=== PATIENT | male | born 1975 | race Caucasian/White ===

== ENCOUNTER 2017-09-14 13:09 | Inpatient (IN) | payer OTHER ==
[2017-09-14 13:43] LABS: #Basophils 0.1 thou/uL (0.0-0.2); #Eosinphils 0.1 thou/uL (0.0-0.7); #Lymphocytes 4.1 thou/uL (1.20-3.40); #Monocytes 0.6 thou/uL (0.11-0.59); #Neutrophils 7.3 thou/uL (1.40-6.50); %Basophils 0.7 % (0.0-1.0); %Eosinophils 0.9 % (0.0-10.0); %Lymphocytes 33.8 % (21.0-51.0); Hematocrit 50.9 % (42.0-52.0); Mean Platelet Volume 8.8 fL (7.4-10.4); Red Blood Cell (RBC) Count 5.47 mill/uL (4.70-6.10); White Blood Cell (WBC) Count 12.2 thou/uL (4.8-10.8)
[2017-09-14] MEDS ORDERED: Fentanyl 100 MCG/2 ML VIAL ONE ×3 (13:44→16:01)
[2017-09-14] MEDS ORDERED: Adacel (T-DAP) 0.5 ML VIAL ONE (13:44)
[2017-09-14 14:05] LABS: ALT (SGPT) 16 U/L (8-55); AST (SGOT) 23 U/L (5-34); Alkaline Phosphatase 84 U/L (40-150); Anion Gap 24 mmol/L (10-20); BUN (Urea Nitrogen) 15 mg/dL (8.9-20.6); Bilirubin, Total 0.3 mg/dL (0.2-1.2); Calc. Creatinine Clearance 0 mL/min (70-130); Calcium 9.3 mg/dL (7.8-10.44); Carbon Dioxide 12 mmol/L (22-29); Chloride 105 mmol/L (98-107); Estimated GFR-MDRD 56; Globulin 3.9 g/dL (2.4-3.5); Protein, Total 7.9 g/dL (6.0-8.3)
--- NOTE | 2017-09-14 14:12 | RAD ---
2 VIEWS LEFT FOREARM: Date: 09/14/17 HISTORY: Dog bits to bilateral arms. FINDINGS: There is subcutaneous emphysema and soft tissue irregularity involving the left forearm consistent w ith laceration. Subcutaneous edema is seen. No radiopaque foreign body is identified. There is no ev idence of a fracture or other osseous abnormality. Peripheral intravenous catheter overlies the rajiv on of the antecubital fossa. IMPRESSION: 1. Laceration and subcutaneous emphysema involving the left forearm. 2. No acute fracture visualized. POS: [facility]
--- NOTE | 2017-09-14 14:14 | RAD ---
TWO VIEWS RIGHT FOREARM: Date: 09-14-17 History: Dog bites to bilateral arms. Right forearm pain. FINDINGS: There is subcutaneous emphysema seen involving the distal arm and proximal left forearm with soft ti ssue irregularity most consistent with laceration. Subcutaneous edema is seen. There is no radiopaqu e foreign body identified. No fracture or dislocation is seen involving the right forearm. IMPRESSION: Findings consistent with laceration and subcutaneous edema involving the distal arm and proximal rig ht forearm without evidence of a radiopaque foreign body or fracture. POS: [facility]
[2017-09-14] MEDS ORDERED: Fentanyl 100 MCG/2 ML VIAL SLOW IVP SCH (14:45)
[2017-09-14] MEDS ORDERED: Ampicillin/Sulbactam 3 GM, Syringe 1.6 ML in Sterile Water 6.4 ML SLOW IVP SCH (14:45)
--- NOTE | 2017-09-14 14:51 | RAD ---
TWO VIEWS RIGHT HUMERUS: History: Dog bites, pain, trauma. FINDINGS: There is extensive subcutaneous emphysema due to soft tissue injury. Radiopaque foreign body is not appreciated. No fracture. IMPRESSION: 1. No radiopaque foreign body. No fracture. 2. Subcutaneous emphysema due to soft tissue injury. POS: [facility]
--- NOTE | 2017-09-14 14:54 | RAD ---
LEFT HAND THREE VIEWS: History: Trauma. Patient was bit by a dog. Comparison: None. FINDINGS: There is subcutaneous emphysema and soft tissue swelling involving the distal forearm. With regard t o the left hand there is a fracture involving the tuft of the fourth digit. Small amount of subcutan eous emphysema and soft tissue in the thenar eminence is noted. Joint spaces are preserved. No radio paque foreign body. IMPRESSION: 1. Soft tissue injury as above. 2. Fracture involving the tuft of the fourth digit. 3. No radiopaque foreign body. POS: [facility]
--- NOTE | 2017-09-14 14:55 | RAD ---
THREE VIEWS LEFT WRIST: Indication: Dog bite. Comparison: Prior exam dated 09-14-17, 1:55 p.m. FINDINGS: There is prominent soft tissue laceration involving the dorsal and ulnar aspect of the distal forear m with extensive subcutaneous gas. There is a small cortical fracture seen off the ulnar aspect of t he distal radial shaft. IMPRESSION: Extensive soft tissue laceration of the left forearm. Small cortical shaft avulsion injury, possibly from the dog bite penetrating the ulnar aspect of the shaft of the distal radius. POS: [facility]
--- NOTE | 2017-09-14 14:58 | RAD ---
RIGHT WRIST THREE VIEWS: History: Trauma, pain. Comparison: None. FINDINGS: Intracarpal and radiocarpal joint spaces preserved. No fracture. No cortical irregularity. No radiop aque foreign body. IMPRESSION: No fracture. POS: [facility]
[2017-09-14] MEDS ORDERED: Bupivacaine/Epinephrine 0.25% 30 ML VIAL ONE (15:35)
[2017-09-14] MEDS ORDERED: Neomycin-Polymyxin 1 ML AMP ONE (15:36)
[2017-09-14] MEDS ORDERED: MORPHINE 10 MG/ML SYRINGE ONE (15:48)
[2017-09-14] MEDS ORDERED: Succinylcholine Chloride 20 MG/ML 10 ml SYRINGE FS ONE (16:21)
[2017-09-14] MEDS ORDERED: Ketorolac Tromethamine 30 MG/ML VIAL ONE (16:21)
[2017-09-14] MEDS ORDERED: Propofol 200 MG/20 ML VIAL ONE (16:21)
[2017-09-14] MEDS ORDERED: Lidocaine 1% PF 5 ML VIAL ONE (16:21)
[2017-09-14] MEDS ORDERED: Ondansetron HCl/PF 4 MG/2 ML Vial ONE (16:21)
[2017-09-14] MEDS ORDERED: Dexamethasone 20 MG/5 ML VIAL ONE (16:21)
[2017-09-14] MEDS ORDERED: PHENYLEPHRINE-NS 100 MCG/ML 10 ML SYRINGE ONE (16:21)
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
[2017-09-14] MEDS ORDERED: Midazolam HCl 5 mg/5 ml Vial ONE (18:35)
[2017-09-14] MEDS ORDERED: Ondansetron ODT 4 MG TAB PO PRN (19:40)
[2017-09-14] MEDS ORDERED: Dextrose 50% Abboject 50 ML SYRINGE SLOW IVP PRN (19:40)
[2017-09-14] MEDS ORDERED: hydrALAZINE 20 MG/ML VIAL SLOW IVP PRN (19:40)
[2017-09-14] MEDS ORDERED: Dextrose 5% in Water 1,000 ML IV PRN (19:40)
[2017-09-14] MEDS ORDERED: Ondansetron HCl/PF 4 MG/2 ML Vial IVP PRN ×2 (19:40→19:55)
[2017-09-14] MEDS ORDERED: Promethazine HCl 25 MG/ML VIAL IM PRN (19:40)
--- NOTE | 2017-09-14 19:46 | OP ---
DATE OF PROCEDURE: 09/14/2017 PREOPERATIVE DIAGNOSIS: Multiple open wounds bilateral upper extremities secondary to dog bite. POSTOPERATIVE DIAGNOSIS: Multiple open wounds bilateral upper extremities secondary to dog bite. PROCEDURE: Washout of multiple wounds with partial closure (Dr. Rice came into the room to expl ore most of the wounds and managed them. TECHNIQUE: The patient was taken emergently from the ER to the operating room. His neuro exam was very limited preoperatively secondary to mental status and significant pain. Bilateral upper extrem ities were prepped and draped in a sterile fashion all the way to the axilla. Most of the hair on t he arms was shaved before the prep. Pulsavac was used to evacuate to irrigate out these upper and l ower wounds. There were three complex open wounds to the left forearm as well as three to the right upper arm above the elbow. The wounds were all irrigated, Dr. Rice came into the room to explo re the wounds. See his dictation for details of that. The small lacerations that were superficial were closed using zaheer. A few of the medium size lacerations were closed using Prolene suture. The rest were left open and the larger ones with a wound VAC. Dr. Rice plans stage 3 operation at a later date. Please see his dictation for details. The patient went to recovery in stable cond ition.
[2017-09-14] MEDS ORDERED: Promethazine HCl 25 MG/ML VIAL IM/IV PRN (19:55)
[2017-09-14] MEDS ORDERED: Meperidine HCl/PF 25 MG/ML VIAL SLOW IVP PRN (19:55)
[2017-09-14] MEDS ORDERED: Non-Formulary Medication 1 EACH PO PRN (19:55)
[2017-09-14] MEDS: Acetaminophen 500 MG TAB PO SCH (21:25)
[2017-09-14] MEDS: traMADol HCl 50 MG TAB PO SCH (21:26)
[2017-09-14] MEDS: Famotidine 20 MG TAB PO SCH (21:26)
[2017-09-14] MEDS: Oxazepam 10 MG CAP PO SCH (21:26)
[2017-09-14] MEDS: Sodium Chloride 0.9% 1,000 ML IV SCH (21:27)
[2017-09-14] MEDS: Ampicillin/Sulbactam 3 GM, Syringe 1.6 ML in Sterile Water 6.4 ML SLOW IVP SCH (22:24)
[2017-09-14 23:22] VITALS: BMI 32.8
[2017-09-14] MEDS ORDERED: Ampicillin/Sulbactam 3 GM in Sodium Chloride 0.9% 100 ML IVPB SCH (23:59)
[2017-09-15] MEDS: Oxazepam 10 MG CAP PO SCH ×4 (02:48→19:47)
[2017-09-15] MEDS: Acetaminophen 500 MG TAB PO SCH ×4 (02:48→19:47)
[2017-09-15] MEDS: traMADol HCl 50 MG TAB PO SCH ×4 (02:49→19:47)
[2017-09-15] MEDS: Ampicillin/Sulbactam 3 GM, Syringe 1.6 ML in Sterile Water 6.4 ML SLOW IVP SCH ×4 (04:30→21:14)
[2017-09-15] MEDS: Cyclobenzaprine 10 MG TAB PO PRN (04:30)
[2017-09-15 05:41] LABS: Prothrombin Time 15.3 SEC (12.0-14.7)
[2017-09-15 05:42] LABS: PTT 35.7 SEC (22.9-36.1)
[2017-09-15 05:44] LABS: #Lymphocytes 1.4 thou/uL (1.20-3.40); #Monocytes 0.5 thou/uL (0.11-0.59); #Neutrophils 9.2 thou/uL (1.40-6.50); %Basophils 0.1 % (0.0-1.0); %Eosinophils 0.1 % (0.0-10.0); %Lymphocytes 12.7 % (21.0-51.0); %Monocytes 4.2 % (0.0-10.0); Hematocrit 37.5 % (42.0-52.0); Mean Platelet Volume 8.8 fL (7.4-10.4); Red Blood Cell (RBC) Count 3.97 mill/uL (4.70-6.10); White Blood Cell (WBC) Count 11.1 thou/uL (4.8-10.8)
[2017-09-15 06:37] LABS: Anion Gap 13 mmol/L (10-20); BUN (Urea Nitrogen) 15 mg/dL (8.9-20.6); Calc. Creatinine Clearance 117 mL/min (70-130); Calcium 7.8 mg/dL (7.8-10.44); Carbon Dioxide 18 mmol/L (22-29); Chloride 109 mmol/L (98-107); Estimated GFR-MDRD 67
[2017-09-15] MEDS: Sodium Chloride 0.9% 1,000 ML IV SCH ×2 (07:37→13:23)
--- NOTE | 2017-09-15 08:30 | OP ---
DATE OF PROCEDURE: 09/14/2017 PREOPERATIVE DIAGNOSIS: Right and left multiple dog bite wounds, left and right long finger, left a nd right forearm, and left arm. POSTOPERATIVE DIAGNOSIS: Right and left multiple dog bite wounds, left and right long finger, left and right forearm, and left arm. SURGEON: Ranjit Rice MD. SOCIAL MEDIA MARKETING ANALYST: Jorje Reyes M.D. PROCEDURES PERFORMED: By Dr. Rice are as follows: On the right side, 1. Tenotomies of the flexor carpi radialis muscle belly. 2. Tenotomy of flexor carpi ulnaris muscle belly. 3. Flexor digitorum communis muscle belly tenotomy. 4. Tenotomy of the triceps tendon in the arm level. 5. Ulnar nerve neuroplasty/exploration of cubital tunnel and distal. 6. Fasciotomy, volar forearm superficial and deep on the right side. 7. Application of VAC dressing, approximately 10 x 5 cm right upper extremity. PROCEDURES ALL APPLIED TO THE LEFT LOWER EXTREMITY: 1. Debridement of long finger wound. 2. Debridement of left long finger grade 2 open distal phalanx fracture. 3. Debridement of nail bed laceration. 4. Debridement of dog bite wound, forearm, complex. 5. Deep debridement down to, but not including bone. 6. Tenotomy of extensor digitorum communis. 7. Tenotomy of extensor digitorum minimi. 8. Application of wound VAC dressing, 6 cm x 2.5 cm, all VAC dressing excellent suction. HISTORY: The patient involved in a dog bite wound reportedly by 2 pit bulls that he owns or either takes care. He was brought to the operating room and once the general surgeon tongue trimmer had begun an exploration, decided to consult intraoperatively for hand care. successful initiation of his procedure by Dr. Reyes, general surgeon, Dr. Rice arrived at the field. The left side and rig ht side were prepped and draped. No exam was done by Dr. Rice prior to initiation of surgery. Then, the patient already had the most superficial wounds already opened and debrided by Dr. Reyes that would easily visualize the large dorsal radial and dorsal ulnar dog bite wounds, extended them in a zigzag fashion to connect them, and using a wide field to evaluate the tendons. Here, we saw musculotendinous junction and muscle belly laceration that was deep. We saw no evidence in his fore arm of median nerve abnormality with the forearm wounds that were debrided volarly and we saw no beverly dence of superficial radial nerve abnormality. The extensor tenotomy tendons were debrided to form a tenotomy. They are back to viable tissue as described above and then the patient underwent debrid ement and removed all nonviable muscle from this area. Once this was done, the portion of the wound s that I extended were gently closed but left partially open, the large defect in the central dorsal region, proximal third dorsal region of the forearm underwent VAC dressing application and they had all been irrigated with a total of 5 liters normal saline with Pulsavac inside. The patient had no rmal capillary refill and indeed much tendon function had been restored. Once this was completely covered, the VAC dressings showed excellent suction of the machine with aurea y low liquid at the extensor digitorum communis, we returned attention to the right side by Dr. Jarrod hall and his team had already performed a debridement of the superficial wound, but there was a very deep wound to the proximal third forearm and to the arm. We first approached the arm wound by exten ding a 5 cm long oblique transverse incision proximally and distally giving us a total of about 10 c m working area to visualize a laceration in the partial aspect of the lateral triceps where tenotomy was performed with triceps to remove the nonviable portion of the tendon and we saw the direct ____ _ radial nerve and then we could, therefore, visualize the radial nerve from this juncture and there was no evidence of laceration or contusion. Then, we irrigated this with 1 liter normal saline and Pulsavac pressure with antibiotics inside. T hen, we also visualized the large gaping wound with muscle belly protruding through which was the la rgest of all the open wounds and dog bites, so we extended the laceration 7 cm proximal and 5 cm dis isha. At that point, we could see a flexor carpi radialis and flexor carpi ulnaris along with the pr onator head of all different damage levels, but all had musculotendinous nonviable muscle with hemat jenny within the muscles seen. All this was debrided. Debridement techniques here as well in the pro ximal portion, the distal portion was same to include the use of curet, [place] blade, 11 blade knife . Tenotomy scissors for instrumentation and then irrigation got to continue the debridement already initiated. At this point, we had now removed copious amounts of nonviable muscle, hematoma, releas e of fascia to perform fasciotomy to prevent fascial edema and could visualize the ulnar nerve total ly intact. The radial nerve is seen totally intact throughout the field and the arm as well. We th en irrigated this with 2500 mL normal saline, obtained hemostasis, cover all of the smaller wounds w ith Xeroform, 4 x 4s, and a Kerlix In the wound for the VAC dressing, which was applied over the pa lmar wound after partially closing the humerus wound. The patient left the operating room in a bulk y dressing and excellent VAC dressing on both sides. No evidence of anesthetic or operative complic ation. The left hand, there was a palmar 2 cm laceration over the thenar eminence extended 2 cm pro ximally along the edge of the hypothenar region and then distally in line with the third webspace an d through here we could see there was no evidence of nerve damage or gross contamination. Once we h ad done all debridement, then we irrigated this wound with 2 liters of normal saline and the patient was discharged. He had excellent VAC suction on both sides at the time of transfer.
[2017-09-15] MEDS ORDERED: FLU VACC QS2017-18 36 mo. & older 0.5 ML SYRINGE IM ONE (09:00)
[2017-09-15] MEDS: Famotidine 20 MG TAB PO SCH ×2 (09:37→21:15)
[2017-09-15] MEDS: Folic Acid 1 MG TAB PO SCH (09:37)
--- NOTE | 2017-09-15 15:09 | PRG ---
DATE OF SERVICE: 09/15/2017 ATTENDING PHYSICIAN: Jorje Reyes M.D. SUBJECTIVE: The patient is postoperative day #1 status post debridement and repair of bilateral upper extremity wounds due to multiple dog bites. He has remained stable on the floor postoperatively. He has had no postoperative complications thus far and pain has been well controlled. He is doing well on exam this morning. OBJECTIVE: VITAL SIGNS: Currently, temp 97.5, pulse 86, respirations 14, blood pressure at 122/86. GENERAL: No acute distress, resting comfortably. LUNGS: Bilateral to auscultation. CARDIOVASCULAR: Regular rate and rhythm. EXTREMITIES: Bilateral upper extremities with negative pressure wound, VAC therapy in place. NEUROLOGIC: The patient is neurologically intact. No deficits. ASSESSMENT AND PLAN: This is a 42-year-old male status post multiple dog bite wounds to the upper extremities which have been debrided. He has wound VAC therapy in place to both extremities. We will plan on taking him back to the operating room in the next few days for continued washout and repair. Pain is well managed at this time. We [facility] DC Brewer catheter. Continue IV antibiotics as ordered. Monitor serial labs. The patient has been seen and examined by Dr. Reyes and he agrees with the above plan. [facility]
[2017-09-15] MEDS: Gabapentin 300 MG CAP PO SCH ×2 (15:54→21:15)
[2017-09-15] MEDS ORDERED: Lurasidone HCl 40 MG TABLET PO SCH (21:00)
[2017-09-15] MEDS ORDERED: Non-Formulary Item 1 EACH (Lurasidone Hcl [Latuda] 60 MG) PO SCH (21:00)
[2017-09-15] MEDS: Mirtazapine 15 MG TAB PO SCH (21:15)
[2017-09-15] MEDS: Lurasidone HCl 40 MG TABLET PO SCH (21:15)
[2017-09-15] MEDS: Enoxaparin Sodium 40 MG/0.4 ML SYRINGE SC SCH (21:16)
[2017-09-15] MEDS ORDERED: Promethazine HCl 25 MG/ML VIAL IM PRN (21:26)
[2017-09-16] MEDS: Acetaminophen 500 MG TAB PO SCH ×4 (02:01→19:57)
[2017-09-16] MEDS: Oxazepam 10 MG CAP PO SCH ×4 (02:01→19:56)
[2017-09-16] MEDS: traMADol HCl 50 MG TAB PO SCH ×4 (02:01→19:56)
[2017-09-16] MEDS: Sodium Chloride 0.9% 1,000 ML IV SCH ×4 (02:02→22:39)
[2017-09-16] MEDS: Ampicillin/Sulbactam 3 GM, Syringe 1.6 ML in Sterile Water 6.4 ML SLOW IVP SCH ×4 (02:47→21:29)
[2017-09-16 06:03] LABS: #Lymphocytes 2.1 thou/uL (1.20-3.40); #Monocytes 0.7 thou/uL (0.11-0.59); #Neutrophils 5.1 thou/uL (1.40-6.50); %Basophils 0.1 % (0.0-1.0); %Eosinophils 0.2 % (0.0-10.0); %Lymphocytes 26.5 % (21.0-51.0); %Monocytes 8.7 % (0.0-10.0); Hematocrit 32.3 % (42.0-52.0); Mean Platelet Volume 8.4 fL (7.4-10.4); Red Blood Cell (RBC) Count 3.37 mill/uL (4.70-6.10); White Blood Cell (WBC) Count 7.9 thou/uL (4.8-10.8)
[2017-09-16] MEDS: Gabapentin 300 MG CAP PO SCH ×4 (08:59→20:28)
[2017-09-16] MEDS: Folic Acid 1 MG TAB PO SCH (08:59)
[2017-09-16] MEDS: Famotidine 20 MG TAB PO SCH ×2 (09:00→20:28)
[2017-09-16] MEDS: Losartan Potassium 25 MG TAB PO SCH (09:00)
[2017-09-16] MEDS: Cyclobenzaprine 10 MG TAB PO PRN (18:19)
--- NOTE | 2017-09-16 18:42 | PRG ---
DATE OF SERVICE: 09/16/2017 ATTENDING PHYSICIAN: Dr. Gerson Hair. SUBJECTIVE: The patient is postoperative day #2 status post debridement and repair of bilateral upper extremity wounds due to multiple dog bites. He is stable on the floor postoperatively. He has had no complications. [facility] and restarted one day ago. OBJECTIVE: GENERAL: No acute distress, resting comfortably. VITAL SIGNS: Temperature 97.7, pulse 76, respirations 10, O2 sat 93% and blood pressure 127/80. LUNGS: Respirations even and unlabored. No respiratory distress. CARDIOVASCULAR: Regular rate and rhythm. ABDOMEN: Soft and nontender. NEUROLOGIC: The patient is neurologically intact. No deficits. EXTREMITIES: Bilateral upper extremities with negative pressure wound VAC therapy in place on both extremities functioning appropriately. Moves all digits. Complains of numbness to the left hand fourth and fifth digits, which he reports as being chronic due to carpal tunnel syndrome. ASSESSMENT AND PLAN: This is a 42-year-old male, status post multiple dog bite wounds to the upper extremities, which are status post debridement. Wound VAC in place and functioning normally. We will plan on taking him back to the operating room in the next 1-2 days for a repeat washout and repair. Pain is well controlled. Home medicines have been restarted. Discontinue IV fluids. Continue regular diet. Monitor serial labs. Assessment and plan of care have been reviewed and discussed with trauma attending. [facility]
[2017-09-16] MEDS ORDERED: Ketorolac Tromethamine 30 MG/ML VIAL IVP PRN (20:02)
[2017-09-16] MEDS: Mirtazapine 15 MG TAB PO SCH (20:28)
[2017-09-16] MEDS: Lurasidone HCl 40 MG TABLET PO SCH (20:29)
[2017-09-16] MEDS: Enoxaparin Sodium 40 MG/0.4 ML SYRINGE SC SCH (20:29)
[2017-09-17] MEDS: Sodium Chloride 0.9% 1,000 ML IV SCH ×2 (01:16→09:26)
[2017-09-17] MEDS: traMADol HCl 50 MG TAB PO SCH ×4 (01:19→20:05)
[2017-09-17] MEDS: Oxazepam 10 MG CAP PO SCH ×3 (01:19→21:50)
[2017-09-17] MEDS: Acetaminophen 500 MG TAB PO SCH ×4 (01:19→20:05)
[2017-09-17] MEDS: Ampicillin/Sulbactam 3 GM, Syringe 1.6 ML in Sterile Water 6.4 ML SLOW IVP SCH ×4 (03:45→21:49)
[2017-09-17] MEDS: Losartan Potassium 25 MG TAB PO SCH (07:57)
[2017-09-17] MEDS: Folic Acid 1 MG TAB PO SCH (07:57)
[2017-09-17] MEDS: Famotidine 20 MG TAB PO SCH ×2 (07:58→20:05)
[2017-09-17] MEDS: Gabapentin 300 MG CAP PO SCH ×3 (07:58→20:09)
--- NOTE | 2017-09-17 13:49 | PRG ---
DATE OF SERVICE: 09/17/2017 SUBJECTIVE: Mr. Neisha Castrejon is a 42-year-old male who is postop day #3 status post debridement and repair, bilateral upper extremity wounds secondary to multiple dog bites. He localizes no complain ts this a.m. He did have increasing pain overnight for which Toradol was added to his pain regimen. He is more drowsy today than yesterday. OBJECTIVE: VITAL SIGNS: Temperature 97.7, pulse 70, respiration 14, O2 sat 99% on room air, blood pressure 126 /78. GENERAL: Well-developed, well-nourished male in no acute distress, resting in bed. PULMONARY: Normal work of breathing. Symmetric rise. CARDIOVASCULAR: Regular rate and rhythm. GASTROINTESTINAL: Abdomen is soft, nontender, nondistended. MUSCULOSKELETAL: Bilateral upper extremity dressing is clean, dry, and intact. Wound VAC is in bridgette ce. There is some serosanguineous drainage within the wound VAC canisters. NEUROLOGIC: No focal deficit noted. LABORATORY FINDINGS: No new laboratory findings this a.m. RADIOGRAPHIC FINDINGS: No new radiographic findings this a.m. ASSESSMENT: 1. Status post multiple dog bites to bilateral upper extremities. 2. Postop day #3 status post debridement and repair as above. 3. Acute traumatic pain. 4. History of post-traumatic stress disorder and anxiety. 5. Polysubstance use, marijuana and ecstasy. 6. Alcohol and tobacco use. PLAN: Continue pain management as ordered. Reduce Serax to b.i.d. Discussed with Orthopedic Surge ry or the patient returned to the operating room. Continue to encourage mobility and pulmonary toil et. Continue home psychiatric medications as ordered. Continue supportive care. A.m. labs. The p atient has been discussed with trauma attending. All questions answered at the time of this dictati on.
[2017-09-17] MEDS: Mirtazapine 15 MG TAB PO SCH (20:05)
[2017-09-17] MEDS: Enoxaparin Sodium 40 MG/0.4 ML SYRINGE SC SCH (20:09)
[2017-09-17] MEDS: Lurasidone HCl 40 MG TABLET PO SCH (20:09)
[2017-09-18] MEDS: traMADol HCl 50 MG TAB PO SCH ×4 (03:13→19:10)
[2017-09-18] MEDS: Acetaminophen 500 MG TAB PO SCH ×4 (03:13→19:10)
[2017-09-18] MEDS: Ampicillin/Sulbactam 3 GM, Syringe 1.6 ML in Sterile Water 6.4 ML SLOW IVP SCH ×4 (03:14→20:25)
[2017-09-18 05:39] LABS: #Eosinphils 0.1 thou/uL (0.0-0.7); #Lymphocytes 1.8 thou/uL (1.20-3.40); #Monocytes 0.5 thou/uL (0.11-0.59); #Neutrophils 1.7 thou/uL (1.40-6.50); %Basophils 0.6 % (0.0-1.0); %Eosinophils 1.4 % (0.0-10.0); %Lymphocytes 43.5 % (21.0-51.0); %Monocytes 11.7 % (0.0-10.0); Hematocrit 32.7 % (42.0-52.0); Mean Platelet Volume 8.4 fL (7.4-10.4); Red Blood Cell (RBC) Count 3.39 mill/uL (4.70-6.10); White Blood Cell (WBC) Count 4.1 thou/uL (4.8-10.8)
[2017-09-18 05:58] LABS: Anion Gap 10 mmol/L (10-20); BUN (Urea Nitrogen) 10 mg/dL (8.9-20.6); Calc. Creatinine Clearance 173 mL/min (70-130); Calcium 8.6 mg/dL (7.8-10.44); Carbon Dioxide 27 mmol/L (22-29); Chloride 107 mmol/L (98-107); Estimated GFR-MDRD Greater than 90; Magnesium 1.5 mg/dL (1.6-2.6); Phosphorus 4.4 mg/dL (2.3-4.7)
[2017-09-18] MEDS: Sodium Chloride 0.9% 1,000 ML IV SCH ×3 (07:32→23:04)
[2017-09-18] MEDS ORDERED: Sodium Chloride 0.9% 30 ML ONE (07:35)
[2017-09-18] MEDS ORDERED: Bupivacaine PF 0.5% 30 ML VIAL ONE (07:35)
[2017-09-18] MEDS ORDERED: Thrombin 5000 UNITS/5 ML VIAL ONE (07:35)
[2017-09-18] MEDS ORDERED: Lidocaine 1% (PF) 30 ML VIAL ONE (07:35)
[2017-09-18] MEDS ORDERED: Bacitracin Zinc Ointment 30 gm TUBE ONE ×2 (07:35→10:29)
[2017-09-18] MEDS ORDERED: Midazolam HCl 2 mg/2 ml Vial ONE ×2 (07:59→08:23)
[2017-09-18] MEDS ORDERED: Fentanyl 100 MCG/2 ML VIAL ONE ×2 (08:08→12:50)
[2017-09-18] MEDS ORDERED: Dexamethasone 20 MG/5 ML VIAL ONE (08:32)
[2017-09-18] MEDS ORDERED: Ketorolac Tromethamine 30 MG/ML VIAL ONE (08:32)
[2017-09-18] MEDS ORDERED: Ondansetron HCl/PF 4 MG/2 ML Vial ONE (08:32)
[2017-09-18] MEDS ORDERED: Propofol 200 MG/20 ML VIAL ONE (08:32)
[2017-09-18] MEDS: cloNIDine 0.1 MG TAB PO SCH ×3 (12:10→20:04)
[2017-09-18] MEDS: Gabapentin 300 MG CAP PO SCH ×3 (12:10→20:04)
[2017-09-18] MEDS ORDERED: Ondansetron HCl/PF 4 MG/2 ML Vial IVP PRN (12:47)
[2017-09-18] MEDS ORDERED: Promethazine HCl 25 MG/ML VIAL SLOW IVP PRN (12:47)
[2017-09-18] MEDS ORDERED: Promethazine HCl 25 MG/ML VIAL IM PRN (12:47)
[2017-09-18] MEDS ORDERED: Promethazine HCl 25 MG/ML VIAL ONE (12:52)
[2017-09-18] MEDS: Oxazepam 10 MG CAP PO SCH ×2 (13:25→20:04)
[2017-09-18] MEDS: Famotidine 20 MG TAB PO SCH ×2 (13:25→20:04)
[2017-09-18] MEDS ORDERED: Morphine PF 1 MG/ML SYR IVP PRN (14:04)
[2017-09-18] MEDS: Losartan Potassium 25 MG TAB PO SCH (14:59)
[2017-09-18] MEDS: Folic Acid 1 MG TAB PO SCH (14:59)
[2017-09-18] MEDS: Docusate 100 MG CAP PO SCH (15:00)
[2017-09-18] MEDS: Senokot 8.6 MG TAB PO SCH (15:05)
[2017-09-18] MEDS: Morphine 4 MG/ML VIAL SLOW IVP PRN ×3 (15:54→23:11)
--- NOTE | 2017-09-18 16:46 | PRG ---
DATE OF SERVICE: 09/18/2017 SUBJECTIVE: Mr. Neisha Castrejon is a 42-year-old male who presented to the [facility] ER status post b ilateral upper extremity wounds secondary to multiple dog bites. He was taken to the operating room earlier today with hand surgery. He is drowsy postoperative. He localizes no complaint. OBJECTIVE: VITAL SIGNS: Reviewed. GENERAL: Well-developed, well-nourished male in no acute distress, resting in bed. PULMONARY: Normal work of breathing. LUNGS: Symmetric rise. CARDIOVASCULAR: Regular rate and rhythm. GASTROINTESTINAL: Abdomen is soft, nontender, nondistended. MUSCULOSKELETAL: Bilateral upper extremity dressing clean, dry, and intact. NEUROLOGIC: No focal deficits noted. LABORATORY FINDINGS: Sodium 140, potassium 4.2, chloride 107, carbon dioxide 27, BUN 10, creatinine 0.80. WBC 4.1, hemoglobin 10.7, hematocrit 32.7, platelet count 133. RADIOGRAPHIC FINDINGS: No new radiographic findings. ASSESSMENT: 1. Status post multiple dog bites bilateral upper extremities. 2. Postoperative day #0 and postoperative day #3 status post debridement and repair of above injuri es. 3. Acute traumatic pain. 4. History of post-traumatic stress disorder and anxiety. 5. Polysubstance use, marijuana, and ecstasy. 6. Alcohol and tobacco use. PLAN: Continue pain management as ordered. Continue Serax taper. Discussed with Orthopedic Surger y. Continue to encourage mobility and pulmonary toilet. Continue home psychiatric medications as o rdered. Patient has been discussed with trauma attending. All questions were answered at the time of this dictation.
[2017-09-18] MEDS: Mirtazapine 15 MG TAB PO SCH (20:04)
[2017-09-18] MEDS: Lurasidone HCl 40 MG TABLET PO SCH (20:05)
[2017-09-18] MEDS: Enoxaparin Sodium 40 MG/0.4 ML SYRINGE SC SCH (20:06)
[2017-09-19] MEDS: traMADol HCl 50 MG TAB PO SCH ×3 (01:59→14:00)
[2017-09-19] MEDS: cloNIDine 0.1 MG TAB PO SCH ×2 (02:00→08:17)
[2017-09-19] MEDS: Acetaminophen 500 MG TAB PO SCH ×2 (02:00→08:15)
[2017-09-19] MEDS: Ampicillin/Sulbactam 3 GM, Syringe 1.6 ML in Sterile Water 6.4 ML SLOW IVP SCH ×2 (03:04→09:05)
[2017-09-19 05:39] LABS: #Lymphocytes 1.6 thou/uL (1.20-3.40); #Monocytes 0.5 thou/uL (0.11-0.59); #Neutrophils 6.7 thou/uL (1.40-6.50); %Eosinophils 0.1 % (0.0-10.0); %Monocytes 5.6 % (0.0-10.0); Hematocrit 32.1 % (42.0-52.0); Mean Platelet Volume 8.3 fL (7.4-10.4); Red Blood Cell (RBC) Count 3.35 mill/uL (4.70-6.10); White Blood Cell (WBC) Count 8.8 thou/uL (4.8-10.8)
--- NOTE | 2017-09-19 08:05 | OP ---
DATE OF SURGERY: 09/18/2017 PREOPERATIVE DIAGNOSES: 1. Right upper extremity multiple dog bite wounds with triceps tendon plus carpi radialis tendon pl us carpi ulnaris musculotendinous junction lacerations and possibly contaminated wounds. 2. Left upper extremity open distal phalanx fracture, nail bed laceration complete and complex, the ring finger nail extensor digiti minimi laceration. POSTOPERATIVE DIAGNOSES AND FINDINGS: No gross infection, only minimal of wound edge necrosis, smal l amount of muscle necrosis less to the palmar, mid, and ulnar proximal aspect of the right forearm and no gross hematoma or infection seen. The patient had a white blood cell count of 4.1, no fevers assessed, first procedure 2-1/2 days ago. PROCEDURE PERFORMED: At the right upper extremity: 1. Debridement and irrigation of right arm wound. 2. Debridement and irrigation of right elbow wound. 3. Debridement and irrigation of right forearm wounds. 4. Triceps tendon repair. 5. Flexor carpi radialis repair, right. 6. Flexor carpi ulnaris musculotendinous junction repair. 7. Wound closures to include rotation of flap covered at the elbow medial aspect and total of 63 cm wound debridement and closure. 8. Application of short-arm splint. At the left upper extremity: 1. Debridement of open fracture, left ring finger distal phalanx. 2. Open treatment without fixation of left ring finger distal phalanx fracture. 3. Nail bed repair, complex on the magnification. 4. Debridement and irrigation of the left arm wounds. 5. Extensor digiti minimi repair. 6. Wound closure of the left arm, elbow, and forearm total of 55 cm. 7. Application of short-arm splint. 8. Use of C-arm. C-arm supervision 1 hour. INDICATIONS: The patient is undergoing staged wound management after tremendously large dog bite wo unds which were totalling over almost 120 cm. He returns today for wound management. ANESTHESIA: General LMA technique. DESCRIPTION OF PROCEDURE: After successful general LMA technique, the patient had a timeout done ap propriately and the surgeon along with the OR nurse each prepped and helped drape separate limbs, no tourniquet was applied. We initially forced the right side because of a large amount of musculoten dinous exposure. For this reason, the patient underwent a wide debridement of all wound edges circu mferentially 1 to 1.5 mm. Then, we debrided a small amount of necrosis of one of the skin wound edg es, which is almost 2 cm long and 3 mm wide. Once this was done, we could visualize all the wounds to include a large amount of flexor pronator origin wound involving the flexor carpi radialis and ul naris tendon muscular junction. The triceps on the medial side wound lateral side laceration, and we debrided all this area to include any denuded fat was all removed. It was then irrigated wi th 7 liters of normal saline and Pulsavac pressure with antibiotics inside. We obtained hemostasis in all sites. First repaired the triceps tendon interrupted 3-0 Prolene figu re-of-eight, this was a partial laceration. Next, we have repaired the flexor carpi radialis and fl exor carpi ulnaris right side back to the muscle to muscle near the musculotendinous junction using a #1 Ethibond in a [id number] pattern. It was excellent, but no undue tension here. The patie nt had the irrigation described above with 7 liters of normal saline completed, and then, we found t hat and debrided a small portion of a flap that was created for the VAC dressing on this side, which covered the muscle belly loss and repair at the flexor pronator group origin. We then extended the incision, rotated a flap of skin into the defect, was able to close it primarily without skin graft used in a deep Monocryl 4-0 and a 3-0 nylon for the epidermal repairs, the simple stitch. We then did the same debridement of the wound edges circumferentially at all the other incisions including t riceps repair site, we were able to close them primarily with just a 3-0 nylon interrupted simple pa ttern. The same was done with the lacerations on the forearm. We then were able to place a bacitracin, Adaptic on each of the wounds covered with 4 x 4s, ABD, and a Kerlix, then covered it with a plastic impervious stockinette, so that spray from the irrigation and debridement on the contralateral left side would not occur. Again, we have removed all sutures and zaheer. We debrided all wounds using a combination of same technique we did on the right side, which is as follows: A. Use of curette, tenotomy scissors, [place] blade, 11 blade knife. B. Dissected down all layers with excisional technique. C. We were able to in some place go all the way down to the bone but did not include the bone and i ndeed, there was no infection, only minimal wound edge necrosis. We then were able to visualize the patient's wounds were now clean. Repaired the extensor digit min imi which had approximately 20% with a loss in the dog bite wound back to itself using a figure-of-e ight interrupted suture x2. Then, we began the closure using a 2-layer closure with a deep interrup haven 4-0 Monocryl and then the epidermal closure with a 4-0 or 3-0 nylon depending on the size of the wound. This included the elbow, forearm, and distal forearm lacerations. Now, we turned our attention to the ring finger nail bed. Through the nail bed, we debrided the fra cture sites all were small, therefore, did not to attempt to capture with a K-wire today, so he unde rwent open treatment without internal fixation. Then, we were able to extend the incision using a f jeffery cot tourniquet which lasted only 8 minutes and making an oblique incision over the proximal an d medial nail was able to lift up the nail eponychial fold and visualize the nail bed aspect which w as good because it was displaced and involved germinal matrix mostly. We finished debriding this wi th a combination of curette and tenotomy scissors and then closed this defect back to its base and i nto the distal portion of the laceration using a 4-0 chromic in simple pattern. Once this repair wa s done, we then ensured we had finished all the skin repair and they were done, C-arm showed excelle nt position of the fracture fragment, and we then released the finger cot tourniquet and began repai r. We repaired the incision we made in the nail bed, we cut all the sutures to appropriate length. We then had finished the wound closure on the left arm in multiple layers described above after the debridements, and this was approximately 55 cm total wound surface area repair. We then placed a b ulky dressing over all the wounds to include a separate finger tube gauze over the left ring finger open injury that has not been repaired, also bacitracin, Adaptic under this. The patient then had a short-arm splint applied to both sides and left the operating room without evidence of anesthetic o r operative complication.
[2017-09-19] MEDS: Gabapentin 300 MG CAP PO SCH (08:15)
[2017-09-19] MEDS: Senokot 8.6 MG TAB PO SCH (08:17)
[2017-09-19] MEDS: Folic Acid 1 MG TAB PO SCH (08:17)
[2017-09-19] MEDS: Losartan Potassium 25 MG TAB PO SCH (08:17)
[2017-09-19] MEDS: Docusate 100 MG CAP PO SCH (08:17)
[2017-09-19] MEDS: Famotidine 20 MG TAB PO SCH (08:18)
[2017-09-19] MEDS: Oxazepam 10 MG CAP PO SCH (08:25)
[2017-09-19] MEDS: Morphine 4 MG/ML VIAL SLOW IVP PRN (08:25)
[2017-09-19] MEDS ORDERED: Clindamycin 150 MG CAP PO SCH ×2 (10:11→14:00)
[2017-09-19] MEDS ORDERED: Ketorolac Tromethamine 10 MG TAB PO SCH (12:00)
[2017-09-19 13:35] VITALS: BP 142/84; TEMP 97.6
--- NOTE | 2017-09-19 13:40 | PRG ---
DATE OF SERVICE: 09/19/2017 SUBJECTIVE: Mr. Castrejon has no complaints. He is ready for discharge. The wound has been closed by Dr. Rice. ASSESSMENT: Multiple dog bites with tendon injury, complex wounds status post debridement and closu re repair by Dr. Rice. PLAN: Home today. Follow up with Dr. Avila or in the Trauma office for suture staple removal.
--- NOTE | 2017-09-20 03:15 | DIS ---
DATE OF ADMISSION: 09/14/2017 DATE OF DISCHARGE: 09/19/2017 ADMISSION DIAGNOSES: 1. Status post multiple dog bites to bilateral upper extremities. 2. Acute traumatic pain. 3. History of post-traumatic stress disorder and anxiety. 4. Polysubstance use. 5. History of alcohol abuse. DISCHARGE DIAGNOSES: 1. Status post multiple dog bites to bilateral upper extremities. 2. Acute traumatic pain. 3. History of post-traumatic stress disorder and anxiety. 4. Polysubstance use. 5. History of alcohol abuse. CONSULTANTS: Dr. Rice, Orthopedic/Hand Surgery. PROCEDURES: On 09/14/2017, incision and debridement of bilateral upper extremities and wound VAC pl acement with Dr. Rice and Dr. Reyes. On 09/18/2017, debridement of bilateral upper extremity wounds and fractures with wound closure, bilateral open wounds with Dr. Rice. HOSPITAL COURSE: Neisha Castrejon is a 42-year-old gentleman who presented to [facility] after susta ining multiple dog bites. The patient was taken urgently to the operating room for washout and repa ir of his injuries. Wound VACs were placed. The patient was returned to the operating room on 09/07 for a second washout and the wounds were closed at that time. The patient remained afebrile. White count was within normal limits. The patient was medically stable for discharge on 7 after discussion with the appropriate consultants. Of note, the patient does have a psychiatric h istory for which he was restarted on his home medications during his hospitalization. DISCHARGE DISPOSITION: Home. DISCHARGE CONDITION: Good. PHYSICAL EXAMINATION: VITAL SIGNS: Temperature 97.7, pulse 64, respirations 14, O2 sat 100% on room air, blood pressure 1 26/85. GENERAL: Well-developed, well-nourished male, in no acute distress, sitting in a chair, out of bed. PULMONARY: Normal work of breathing, symmetric rise. CARDIOVASCULAR: Regular rate and rhythm. GASTROINTESTINAL: Abdomen is soft, nontender, nondistended. MUSCULOSKELETAL: Bilateral upper extremity dressing is clean, dry, and intact. Bilateral lower ext remities within normal limits. NEURO: No focal deficit noted. DISCHARGE MEDICATIONS: The patient was discharged home on a 5-day course of clindamycin 500 mg p.o. t.i.d., Ultram 50 mg 1 to 2 tablets q.6 hours p.r.n. for severe pain, #30, Toradol 10 mg 1 tab p.o. t.i.d. p.r.n. for pain as well as his home medications. FOLLOWUP APPOINTMENTS: The patient was given a followup appointment with Dr. Rice on 09/22/2017 at 12:00. He does not need to follow up formally with trauma services and may call our office with any questions. This is merely a summary of the patient's hospitalization. For more in depth information, please se e his medical record in its entirety.
== END 2017-09-19 13:55 | disposition home or self-care (01) | DRG 571 ==
LOC: ERS 13:09 → SDC/OP 15:36 → SURG A 20:22 → OBSVTOIN 20:22
PROVIDERS: ADMIT Surgery; ATTEND Surgery
PROC: 0JDG0ZZ Extraction of Right Lower Arm Subcutaneous Tissue and Fascia, Open Approach (ICD-10-PCS; 2017-09-14)
PROC: 0JDH0ZZ Extraction of Left Lower Arm Subcutaneous Tissue and Fascia, Open Approach (ICD-10-PCS; 2017-09-14)
PROC: 0JDK0ZZ Extraction of Left Hand Subcutaneous Tissue and Fascia, Open Approach (ICD-10-PCS; 2017-09-14)
PROC: 0KD90ZZ Extraction of Right Lower Arm and Wrist Muscle, Open Approach (ICD-10-PCS; 2017-09-14)
PROC: 0KDB0ZZ Extraction of Left Lower Arm and Wrist Muscle, Open Approach (ICD-10-PCS; 2017-09-14)
PROC: 0JDH0ZZ Extraction of Left Lower Arm Subcutaneous Tissue and Fascia, Open Approach (ICD-10-PCS; 2017-09-14)
PROC: 0JBG0ZZ Excision of Right Lower Arm Subcutaneous Tissue and Fascia, Open Approach (ICD-10-PCS; principal; 2017-09-18)
PROC: 0JQG0ZZ Repair Right Lower Arm Subcutaneous Tissue and Fascia, Open Approach (ICD-10-PCS; 2017-09-18)
PROC: 0JBH0ZZ Excision of Left Lower Arm Subcutaneous Tissue and Fascia, Open Approach (ICD-10-PCS; 2017-09-18)
PROC: 0LQ30ZZ Repair Right Upper Arm Tendon, Open Approach (ICD-10-PCS; 2017-09-18)
PROC: 0KQ90ZZ Repair Right Lower Arm and Wrist Muscle, Open Approach (ICD-10-PCS; 2017-09-18)
PROC: 0PBT0ZZ Excision of Right Finger Phalanx, Open Approach (ICD-10-PCS; 2017-09-18)
PROC: 0KQB0ZZ Repair Left Lower Arm and Wrist Muscle, Open Approach (ICD-10-PCS; 2017-09-18)
PROC: 0JQH0ZZ Repair Left Lower Arm Subcutaneous Tissue and Fascia, Open Approach (ICD-10-PCS; 2017-09-18)
DX: S51.852A Open bite of left forearm, initial encounter (principal); I96 Gangrene, not elsewhere classified; S46.321A Laceration of muscle, fascia and tendon of triceps, right arm, initial encounter; S66.821A Laceration of other specified muscles, fascia and tendons at wrist and hand level, right hand, initial encounter; S66.325A Laceration of extensor muscle, fascia and tendon of left ring finger at wrist and hand level, initial encounter; S62.638B Displaced fracture of distal phalanx of other finger, initial encounter for open fracture; F10.10 Alcohol abuse, uncomplicated; S41.152A Open bite of left upper arm, initial encounter; S51.851A Open bite of right forearm, initial encounter; F15.90 Other stimulant use, unspecified, uncomplicated; F19.90 Other psychoactive substance use, unspecified, uncomplicated; F12.90 Cannabis use, unspecified, uncomplicated; Z72.0 Tobacco use; F43.10 Post-traumatic stress disorder, unspecified; F41.9 Anxiety disorder, unspecified
CPT/HCPCS: 36415; 76001; 80048; 80053; 83735; 84100; 85025; 85610; 85730; 90471; 90715; 96374; 96376; 99292; A4216; G0390; G8987-GO-CK; G8988-GO-CI; J0295; J1100; J1650; J1885; J2001; J2175; J2250; J2270; J2405; J2550; J2704; J3010; J3490; S0020

== ENCOUNTER → 2018-06-22 | Emergency (ER) | payer OTHER ==
[~2018-06-22] MED LIST: Haloperidol Lactate 5 MG/ML VIAL ONE; Lidocaine 1% (PF) 30 ML VIAL ONE; Lorazepam 2 MG/ML VIAL ONE; OLANZapine 5 MG TAB ONE; diphenhydrAMINE 50 MG/ML VIAL ONE; hydrOXYzine Pamoate 25 mg Capsule ONE
[2018-06-22 20:43] LABS: Bilirubin Small (Negative); Blood, Urine Negative (Negative); Clarity CLEAR (Clear); Glucose, Urine (Dipstick) Negative (Negative); Leukocyte Negative (Negative); Nitrite Negative (Negative); Protein, Urine (Dipstick) Negative (Neg-Trace); Specific Gravity, Urine 1.035 (1.002-1.036); pH, Urine 5.5 (5.0-9.0)
[2018-06-22 20:56] LABS: Amphetamine Not Detected (NotDetected); Barbiturates Screen Not Detected (NotDetected); Benzodiazepine Screen Not Detected (NotDetected); Cocaine Metabolite Screen Not Detected (NotDetected); Medtox Control Line Valid? VALID (VALID); Medtox Reader # READER 4; Methadone Not Detected (NotDetected); Methamphetamine Not Detected (NotDetected); Opiate Screen Not Detected (NotDetected); Oxycodone Screen Not Detected (NotDetected); Phencyclidine (PCP) Not Detected (NotDetected); THC/Cannabinoid Screen Detected (NotDetected); Tricyclic Screen Not Detected (NotDetected)
[2018-06-22 22:26] LABS: Band 7 % (5-11); Hemoglobin 15.8 g/dL (14.0-18.0); Lymphocytes 46 % (21-51); MDiff Complete? YES; Mean Corpuscular HGB CONC 34.7 g/dL (32.0-36.0); Mean Corpuscular Volume 92.2 fL (78.0-98.0); Monocytes 12 % (0-10); Neutrophil 34 % (42-75); PLT Morphology Comment Appears Decreased; Platelet Count 119 thou/uL (130-400); RBC Distribution Width 12.6 % (11.5-14.5); Red Blood Cell (RBC) Count 4.95 mill/uL (4.70-6.10); White Blood Cell (WBC) Count 8.8 thou/uL (4.8-10.8)
[2018-06-22 22:27] LABS: ALT (SGPT) 28 U/L (8-55); AST (SGOT) 25 U/L (5-34); Acetaminophen Less than 6.0 mcg/mL (10.0-30.0); Alcohol Less than 10 mg/dL (Less than 10); Alkaline Phosphatase 85 U/L (40-150); Anion Gap 19 mmol/L (10-20); BUN (Urea Nitrogen) 18 mg/dL (8.9-20.6); Bilirubin, Total 0.4 mg/dL (0.2-1.2); CK (CPK) 218 U/L (30-200); Calc. Creatinine Clearance 0 mL/min (70-130); Calcium 8.9 mg/dL (7.8-10.44); Carbon Dioxide 17 mmol/L (22-29); Chloride 109 mmol/L (98-107); Estimated GFR-MDRD 79; Globulin 3.5 g/dL (2.4-3.5); Glucose 122 mg/dL (70-105); Potassium 3.5 mmol/L (3.5-5.1); Protein, Total 7.5 g/dL (6.0-8.3); Salicylate Less than 8.0 mg/dL (15.0-30.0); Sodium 141 mmol/L (136-145)
== END ==
LOC: ERS 20:09
DX: R45.851 Suicidal ideations (principal); I10 Essential (primary) hypertension; G43.909 Migraine, unspecified, not intractable, without status migrainosus; F17.210 Nicotine dependence, cigarettes, uncomplicated
CPT/HCPCS: 36415; 80053; 80306; 80307; 81003; 82550; 84443; 85025; 93005; 96372; J1200; J1630; J2001; J2060; Q0177

== ENCOUNTER 2022-11-16 00:04 | Observation (INO) | payer OTHER ==
[2022-11-16] MEDS ORDERED: Ketorolac Tromethamine 30 MG/ML VIAL ONE (00:52)
[2022-11-16] MEDS ORDERED: Acetaminophen 500 MG TAB ONE (00:52)
[2022-11-16] MEDS ORDERED: diphenhydrAMINE 50 MG/ML VIAL ONE (00:52)
[2022-11-16] MEDS ORDERED: Prochlorperazine 10 MG/2 ML VIAL ONE (00:58)
[2022-11-16] MEDS ORDERED: OLANZapine 5 MG TAB ONE ×2 (01:16→08:44)
[2022-11-16 01:21] LABS: #Eosinphils 0.1 thou/uL (0.0-0.7); #Lymphocytes 3.8 thou/uL (1.20-3.40); #Monocytes 0.7 thou/uL (0.11-0.59); #Neutrophils 4.1 thou/uL (1.40-6.50); %Basophils 0.1 % (0.0-1.0); %Eosinophils 1.3 % (0.0-10.0); %Lymphocytes 43.4 % (21.0-51.0); %Neutrophils 47.2 % (42.0-75.0); Hemoglobin 17.1 g/dL (14.0-18.0); Mean Corpuscular HGB CONC 33.4 g/dL (32.0-36.0); Mean Corpuscular Hemoglobin 31.7 pg (27.0-31.0); Mean Corpuscular Volume 94.8 fl (78.0-98.0); Mean Platelet Volume 9.4 fL (7.4-10.4); Platelet Count 133 10x3/uL (130-400); Red Blood Cell (RBC) Count 5.41 mill/uL (4.70-6.10); White Blood Cell (WBC) Count 8.7 10x3/uL (4.8-10.8)
[2022-11-16 01:43] LABS: ALT (SGPT) 42 U/L (8-55); AST (SGOT) 27 U/L (5-34); Albumin 3.8 g/dL (3.5-5.0); Alkaline Phosphatase 80 U/L (40-110); Anion Gap 12 mmol/L (10-20); BUN (Urea Nitrogen) 18 mg/dL (8.9-20.6); Bilirubin, Total 0.6 mg/dL (0.2-1.2); Calc. Creatinine Clearance 0 mL/min (70-130); Calcium 9.1 mg/dL (7.8-10.44); Carbon Dioxide 25 mmol/L (22-29); Chloride 104 mmol/L (98-107); Estimated GFR 85; Globulin 4.3 g/dL (2.4-3.5); Glucose 103 mg/dL (70-105); Potassium 4.3 mmol/L (3.5-5.1); Protein, Total 8.1 g/dL (6.0-8.3); Sodium 137 mmol/L (136-145)
[2022-11-16] MEDS ORDERED: Ampicillin 2 GM VIAL ONE (04:03)
[2022-11-16] MEDS ORDERED: cefTRIAXone\\ROCEPHIN 2 GM VIAL ONE (04:03)
[2022-11-16] MEDS ORDERED: Acyclovir Sodium 730 MG in Sodium Chloride 0.9% 250 ML 250 ML IVPB SCH (04:15)
[2022-11-16] MEDS ORDERED: VANCOMYCIN 2 GRAM/500 ML BAG 2 GM in Premix Bag 1 BAG IVPB SCH (05:30)
[2022-11-16] MEDS ORDERED: Iopamidol-370 76% 500 ML 1 ML ONE (07:46)
[2022-11-16] MEDS ORDERED: Lorazepam 2 MG/ML VIAL SLOW IVP SCH (08:30)
[2022-11-16] MEDS ORDERED: OLANZapine 5 MG TAB PO SCH (08:30)
[2022-11-16] MEDS ORDERED: LORazepam 2 MG/ML SYR.(CARPUJECT) ONE (08:42)
[2022-11-16] MEDS ORDERED: Vancomycin 1 GM in Premix Bag 1 BAG IVPB SCH (09:30)
[2022-11-16] MEDS ORDERED: Acetaminophen 325 MG TAB PO PRN (09:32)
[2022-11-16] MEDS ORDERED: Ondansetron ODT 4 MG TAB PO PRN (09:32)
[2022-11-16] MEDS ORDERED: Acetaminophen 650 MG Suppository PR PRN (09:32)
[2022-11-16] MEDS ORDERED: Ondansetron PF 4 MG/2 ML Vial IVP PRN (09:32)
[2022-11-16] MEDS ORDERED: AMPicillin 1 GM in Sodium Chloride 0.9% 100 ML IVPB SCH (12:00)
[2022-11-16] MEDS ORDERED: Cefepime 2 GM in Sodium Chloride 0.9% 100 ML IVPB SCH (21:00)
[2022-11-17 15:16] LABS: %CD4 (Helper/Inducer) 10.6 % (30.8-58.5); Absolute CD4 339 /uL (359-1519); Lymphocytes/Gated Cell Count 3.2 x10E3/uL (0.7-3.1); Total Lymphocyte 50 % (Not Estab.); WBC Total Count 6.4 x10E3/uL (3.4-10.8)
[2022-11-18 13:15] LABS: LOG10 HIV-1 RNA 3.515 (.)
== END 2022-11-16 12:10 | disposition left against medical advice (07) ==
LOC: ERS 00:04 → ERHOLD 05:30
PROVIDERS: ADMIT Student in an Organized Health Care Education/Training Program; ATTEND Family Medicine
DX: R51.9 Headache, unspecified (principal); R07.9 Chest pain, unspecified; G00.9 Bacterial meningitis, unspecified; B20 Human immunodeficiency virus [HIV] disease; I10 Essential (primary) hypertension; F17.210 Nicotine dependence, cigarettes, uncomplicated; F43.10 Post-traumatic stress disorder, unspecified; F31.9 Bipolar disorder, unspecified; K21.9 Gastro-esophageal reflux disease without esophagitis; Z53.29 Procedure and treatment not carried out because of patient's decision for other reasons; Z91.14 Patient's other noncompliance with medication regimen; Z79.899 Other long term (current) drug therapy; Z88.8 Allergy status to other drugs, medicaments and biological substances
CPT/HCPCS: 36415; 70470; 71045; 80053; 83605; 83880; 84484; 85025; 86361; 87536; 93005; 96361; 96365; 96366; 96367; 96375; J0133; J0290; J0696; J0780; J1200; J1885; J2060; J3370; J7050; Q9967

== ENCOUNTER 2022-11-22 08:45 | Emergency (ER) | payer OTHER ==
[2022-11-22] MEDS ORDERED: hydrOXYzine Pamoate 25 mg Capsule ONE (09:15)
[2022-11-22] MEDS ORDERED: Aspirin Chewable 81 MG TAB ONE (09:15)
[2022-11-22] MEDS ORDERED: hydrOXYzine 25 MG TAB ONE ×2 (09:19)
[2022-11-22 09:36] LABS: Hemoglobin 16.1 g/dL (14.0-18.0); Mean Corpuscular HGB CONC 33.1 g/dL (32.0-36.0); Mean Corpuscular Hemoglobin 30.9 pg (27.0-31.0); Mean Corpuscular Volume 93.2 fl (78.0-98.0); Mean Platelet Volume 9.1 fL (7.4-10.4); Platelet Count 154 10x3/uL (130-400); RBC Distribution Width 12.7 % (11.5-14.5); Red Blood Cell (RBC) Count 5.22 mill/uL (4.70-6.10); White Blood Cell (WBC) Count 5.7 10x3/uL (4.8-10.8)
[2022-11-22 09:55] LABS: ALT (SGPT) 34 U/L (8-55); AST (SGOT) 27 U/L (5-34); Alkaline Phosphatase 79 U/L (40-110); Anion Gap 14 mmol/L (10-20); BUN (Urea Nitrogen) 23 mg/dL (8.9-20.6); Bilirubin, Total 0.8 mg/dL (0.2-1.2); CK (CPK) 225 U/L (30-200); Calc. Creatinine Clearance 0 mL/min (70-130); Calcium 9.2 mg/dL (7.8-10.44); Carbon Dioxide 24 mmol/L (22-29); Chloride 105 mmol/L (98-107); Estimated GFR 66; Globulin 4.2 g/dL (2.4-3.5); Glucose 126 mg/dL (70-105); Protein, Total 8.2 g/dL (6.0-8.3); Sodium 139 mmol/L (136-145)
[2022-11-22 10:05] LABS: Acetaminophen Less than 10.0 mcg/mL (10.0-30.0); Alcohol Less than 10 mg/dL (Less than 10); Salicylate Less than 8.0 mg/dL (15.0-30.0)
[2022-11-22 10:10] LABS: Band 3 % (5-11); Eosinophils 1 % (0-10); Lymphocytes 47 % (21-51); MDiff Complete? YES; Monocytes 12 % (0-10); Neutrophil 34 % (42-75); RBC Morphology Normal; Reactive Lymphocytes 3 % (0-10)
== END 2022-11-22 10:43 | disposition home or self-care (01) ==
LOC: ERS 08:45
DX: S90.812A Abrasion, left foot, initial encounter (principal); I10 Essential (primary) hypertension; F17.210 Nicotine dependence, cigarettes, uncomplicated; X58.XXXA Exposure to other specified factors, initial encounter
CPT/HCPCS: 36415; 70450; 71045; 80053; 80307; 82550; 83880; 84443; 84484; 85025; 93005; Q0177